=== PATIENT | female | born 1975 | race Caucasian/White ===

== ENCOUNTER 2017-02-07 15:33 | Emergency (ER) | payer BC, OTHER ==
[2017-02-07 15:39] VITALS: BP 143/85
[2017-02-07] MEDS ORDERED: Ketorolac 10 MG Tab PO ONE (16:20)
--- NOTE | 2017-02-07 16:25 | EDM.PDOC ---
ED HPI GENERAL MEDICAL PROBLEM - General Chief Complaint: General Stated Complaint: R ankle pain Time Seen by Provider: 02/07/17 15:55 Source of Information: Reports: Patient History Limitations: Reports: No Limitations - History of Present Illness INITIAL COMMENTS - FREE TEXT/NARRATIVE: The patient presents with complaint of pain of her right foot and ankle. She reports she was stepping down form a last step and "rolled" her ankle in an inverted fashion. She has been unable to bear weight. She has pain and swelling. She denies other injuries or complaints. Right Ankle Pain Score (Numeric/FACES): 8 - Related Data Allergies Allergy/AdvReac Type Severity Reaction Status Date / Time No Known Allergies Allergy Verified 02/07/17 15:47 Home Meds: Home Meds Desogestrel-Ethinyl Estradiol [[place] 28 Day Tablet] 1 tab PO QAM 01/17/15 [ History] Past Medical History Musculoskeletal History: Reports: Other (See Below) Other Musculoskeletal History: R foot fracture 2014 Social & Family History - Tobacco Use Smoking Status *Q: Never Smoker Second Hand Smoke Exposure: No - Caffeine Use Caffeine Use: Reports: Soda - Alcohol Use Days Per Week of Alcohol Use: 4 (no previous DWI, etc.) Number of Drinks Per Day: 1 (usually glass of wine) Total Drinks Per Week: 4 - Recreational Drug Use Recreational Drug Use: No Drug Use in Last 12 Months: No - Living Situation & Occupation Living situation: Reports: , with Family Occupation: Employed ED ROS GENERAL - Review of Systems Review Of Systems: ROS reveals no pertinent complaints other than HPI. ED EXAM, GENERAL - Physical Exam Exam: See Below Exam Limited By: No Limitations General Appearance: Alert, WD/WN, No Apparent Distress Eye Exam: Bilateral Eye: EOMI, Normal Inspection, PERRL Ears: Normal External Exam, Normal Canal, Hearing Grossly Normal, Normal TMs Ear Exam: Bilateral Ear: Auricle Normal, Canal Normal, TM normal Nose: Normal Inspection, Normal Mucosa, No Blood Throat/Mouth: Normal Inspection, Normal Lips, Normal Teeth, Normal Gums, Normal Oropharynx, Normal Voice Head: Atraumatic, Normocephalic Neck: Normal Inspection, Supple, Non-Tender, Full Range of Motion. No: Lymphadenopathy (L), Lymphadenopathy (R), Tender Lateral, Tender Midline Respiratory/Chest: No Respiratory Distress, Lungs Clear, Normal Breath Sounds, No Accessory Muscle Use, Chest Non-Tender Cardiovascular: Normal Peripheral Pulses, Regular Rate, Rhythm, No Edema, No Gallop, No Murmur, No Rub Peripheral Pulses: 2+: Radial (L), Radial (R), Posterior Tibial (L), Posterior Tibial (R), Dorsalis Pedis (L), Dorsalis Pedis (R) GI/Abdominal: Normal Bowel Sounds, Soft, Non-Tender, No Organomegaly, No Distention Back Exam: Normal Inspection, Full Range of Motion. No: CVA Tenderness (L), CVA Tenderness (R), Paraspinal Tenderness, Vertebral Tenderness Extremities: Normal Capillary Refill, Other (Moderately swelling of right ankle and foot just under the lateral malleolus with diffuse tenderness on proximal/ lateral foot and lateral malleolus with no visible or palpable defects. ROM restricted secondary to pain. PT and DP pulses 2+. Capillary refill < 2 seconds in all toes. Sensation intact to LT in foot and toes. ) Neurological: Alert, Oriented, CN II-XII Intact, Normal Cognition, Normal Gait, Normal Reflexes, No Motor/Sensory Deficits Skin Exam: Warm, Dry, Intact, Normal Color, No Rash Lymphatic: No Adenopathy Course - Vital Signs Last Recorded V/S: Last Vital Signs Temp 36.6 C 02/07/17 15:33 Pulse 91 02/07/17 15:33 Resp 16 02/07/17 15:33 BP 143/85 H 02/07/17 15:33 Pulse Ox 98 02/07/17 15:33 - Orders/Labs/Meds Orders: Active Orders 24 hr Category Date Time Status Ankle Min 3V Rt [CR] Stat Exams 02/07/17 15:40 Taken Foot Comp Min 3V Rt [CR] Stat Exams 02/07/17 15:42 Taken Departure - Departure Time of Disposition: 16:25 Disposition: Home, Self-Care 01 Clinical Impression: Sprain of right ankle Qualifiers: Encounter type: initial encounter Involved ligament of ankle: other ligament Qualified Code(s): S93.491A - Sprain of other ligament of right ankle, initial encounter Sprain of right foot Qualifiers: Encounter type: initial encounter Qualified Code(s): S93.601A - Unspecified sprain of right foot, initial encounter - Discharge Information Forms: ED Department Discharge - My Orders Last 24 Hours: My Active Orders 02/07/17 15:40 Ankle Min 3V Rt [CR] Stat 02/07/17 15:42 Foot Comp Min 3V Rt [CR] Stat - Assessment/Plan Last 24 Hours: My Active Orders 02/07/17 15:40 Ankle Min 3V Rt [CR] Stat 02/07/17 15:42 Foot Comp Min 3V Rt [CR] Stat Assessment:: Sprain of right ankle and foot. Plan: 1. Toradol 10 mg PO in ER. 2. Elevated and iced in ER. 3. OTC ibuprofen 600 mg every 6 hours for then next 3-5 days and then 400-600 mg every 6 hours as needed for pain and swelling. 4. RENETTA wrap applied for support and comfort and may wear as needed. 5. Elevate and ice in 20 minute cycles every 1-2 hours as able and as tolerated. 6. Crutches for the next 1 week, then gradually advance weight bearing with toe touch and then on ball of foot and then heel as tolerated. 7. Follow up with PCP in 2 weeks if pain and swelling persist or sooner if symptoms worsen.
== END 2017-02-07 16:45 | disposition home or self-care (01) ==
LOC: LL.ED 15:33
DX: S93.491A Sprain of other ligament of right ankle, initial encounter (principal); S93.601A Unspecified sprain of right foot, initial encounter; X50.9XXA Other and unspecified overexertion or strenuous movements or postures, initial encounter
CPT/HCPCS: 73610; 73630; 99283; A9270